=== PATIENT | female | born 2000 | race Caucasian/White ===

== ENCOUNTER 2023-08-13 16:40 | Inpatient (IN) | payer OTHER, SELFPAY ==
[2023-08-13] VITALS (22 sets, daily range): BP systolic 96–141; BP diastolic 46–81; PULSE 90–121; TEMP 36.3–37; BMI 43.4
--- NOTE | 2023-08-13 17:07 | LDADM ---
This patient, Keiko Smith, was admitted to Labor/Delivery/Recovery 107 on 08/13/23 at 16:40. Plans for labor, pain management and were discussed with patient. Patient/family oriented to hospital policies and general routines including ID bracelet, bed and alarms, visiting hours, pain management, procedures, bathroom and other care routines, personal items, smoking policy, room service/diet and guest tray routines, infant security routines, and visiting hours. Patient/Family are encouraged to report perceived risks to care and to ask questions if they do not understand what they are told or what they should do. See OBIX for further documentation.
[2023-08-13 17:26] LABS: Basophils Percent Auto 0.2 % (0.2-1.2); Eosinophils Percent Auto 0.3 % (0-4.4); Hematocrit 37.1 % (37.0-47.0); Hemoglobin 11.8 g/dL (12.0-15.0); Immature Granulocyte Absolute 0.06 K/mm3 (0.00-0.031); Immature Granulocyte Percent A 0.5 % (0-0.5); Lymphocytes Absolute Auto 1.64 K/mm3 (0.9-3.2); Lymphocytes Percent Auto 12.4 % (18.3-44.2); Mean Corpuscular HGB Conc 31.8 g/dl (32-36); Mean Corpuscular Hemoglobin 27.5 pg (26-34); Mean Corpuscular Volume 86.5 fl (80-100); Mean Platelet Volume 12.7 fl (7.4-10.4); Monocytes Percent Auto 7.3 % (2.6-8.5); Neutrophils Absolute Auto 10.5 K/mm3 (1.3-6.7); Neutrophils Percent Auto 79.3 % (45.5-73.1); Platelet Count Result 199 k/mm3 (150-375); Red Blood Count 4.29 M/mm3 (4.2-5.4); Red Cell Distribution Width 14.5 % (11.5-14.5); White Blood Count 13.2 K/mm3 (4.5-10.0)
[2023-08-13] MEDS: DINOPROSTONE 10 MG VAG INSERT VAGINAL (17:44)
--- NOTE | 2023-08-13 18:28 | WPDANESEPP ---
Anes - Eval Pre Procedure Procedure: labor epidural Date/Time: 08/13/23 18:28 Surgeon: aga Preop Diagnosis: pain during labor Pre Op Diagnosis: Induction Patient Data Age: 22 Gender: F Height: 1.7 m Weight: 126 kg Last Vital Signs Pulse 110 H 08/13/23 18:15 BP 127/75 08/13/23 18:15 O2 Del Method Room Air 08/13/23 17:05 Allergies Allergy/AdvReac Type Severity Reaction Status Date / Time No Known Allergies Allergy Verified 08/13/23 17:13 Home Medications Medication Instructions Recorded Confirmed Type prenat.vits,alirio,[id number] 1 tablet PO DAILY 07/13/23 08/13/23 History sertraline 50 mg tablet (Zoloft) 50 mg PO DAILY 07/13/23 08/13/23 History Laboratory Tests 08/13/23 17:15 WBC 13.2 H K/mm3 (4.5-10.0) RBC 4.29 M/mm3 (4.2-5.4) Hgb 11.8 L g/dL (12.0-15.0) Hct 37.1 % (37.0-47.0) MCV 86.5 fl (80-100) MCH 27.5 pg (26-34) MCHC 31.8 L g/dl (32-36) RDW 14.5 % (11.5-14.5) Plt Count 199 k/mm3 (150-375) MPV 12.7 H fl (7.4-10.4) Immature Gran % (Auto) 0.5 % (0-0.5) Neut % (Auto) 79.3 H % (45.5-73.1) Lymph % (Auto) 12.4 L % (18.3-44.2) [place] % (Auto) 7.3 % (2.6-8.5) Eos % (Auto) 0.3 % (0-4.4) Baso % (Auto) 0.2 % (0.2-1.2) Lymph # (Auto) 1.64 K/mm3 (0.9-3.2) [place] # (Auto) 1.0 H K/mm3 (0.1-0.6) Eos # (Auto) 0.0 K/mm3 (0-0.3) Baso # (Auto) 0.0 K/mm3 (0.0-0.1) Abs Immat Gran (auto) 0.06 H K/mm3 (0.00-0.031) Absolute Neuts (auto) 10.5 H K/mm3 (1.3-6.7) Absolute Nucleated RBC 0.000 K/mm3 (0.0-0.012) Nucleated RBC % 0.0 % (0.0-0.2) RPR Pending Blood Type O Positive Antibody Screen Pending Patient hx anesthesia problems: none Family hx anesthesia problems: none Results Review: All pre-operative results and documents have been reviewed as part of the pre-operative evaluation. [facility] Past Medical History Medical History (Updated 08/13/23 @ 18:28 by Roxanna Barrera CRNA) IUP (intrauterine ), incidental Morbid obesity Family History Family History (Updated 07/13/23 @ 12:31 by Kasey Zarate RN) Other Patient denies significant medical history Social History Social History Smoking status: Current every day smoker Tobacco type: e-cigarettes/vaping Second hand tobacco smoke exposure: No Substance use: never Do You Feel Safe in your Home?: Yes Lack of Transportation: No Lack of Food: Never True Current Housing: I Have Housing Concerned About Future Housing: No Difficulty Paying Gas/Electric Bills: No Difficulty Paying for Meds: No Currently Unemployed: No Education: Trade/Vocational Certificate Difficulty w/ Childcare or Family Care: No Spiritual care concerns: No Exam Day of Procedure 08/13/23 18:28
[2023-08-14] VITALS (179 sets, daily range): BP systolic 82–163; BP diastolic 38–128; PULSE 75–191; RESP 16–18; TEMP 36.4–37.2; O2SAT 83–100
[2023-08-14] MEDS: fentaNYL CITRATE INJ (*CRX) 100 MCG/2 ML VIAL 50 MCG IV PUSH ×2 (02:24→05:08)
[2023-08-14] MEDS: LACTATED RINGERS 1,000 ML 125 ML IV CONT ×3 (05:01→11:33)
[2023-08-14] MEDS: OXYTOCIN 30 UNITS/NS 500 ML 30 UNITS/500 ML BAG 6 UNITS IV CONT (05:02)
--- NOTE | 2023-08-14 07:15 | PM.IMHP ---
H&P: HPI History of Present Illness Date/Time: 08/14/23 07:15 Chief Complaint: for induction of Narrative: 22-year-old 1 para 0 whose last menstrual period was 11/02/2022, EDC is 08/09/2023, presents at 447 weeks gestation for induction of labor. She received Cervidil last night and is presently 2-3 cm 75% effaced and -2 station. AROM clear FHTs were reassuring. She is negative for group B strep PMFSH Past Medical History Medical History (Updated 08/14/23 @ 07:18 by Silviano Pham MD) IUP (intrauterine ), incidental Morbid obesity Family History Family History (Updated 07/13/23 @ 12:31 by Kasey Zarate RN) Other Patient denies significant medical history Social History Social History Smoking status: Current every day smoker Tobacco type: e-cigarettes/vaping Second hand tobacco smoke exposure: No Substance use: never Do You Feel Safe in your Home?: Yes Lack of Transportation: No Lack of Food: Never True Current Housing: I Have Housing Concerned About Future Housing: No Difficulty Paying Gas/Electric Bills: No Difficulty Paying for Meds: No Currently Unemployed: No Education: Trade/Vocational Certificate Difficulty w/ Childcare or Family Care: No Spiritual care concerns: No Meds Home Medications and Allergies Home Medications Medication Instructions Recorded Confirmed Type prenat.vits,alirio,lry-bcha-[id number] 1 tablet PO DAILY 07/13/23 08/13/23 History sertraline 50 mg tablet (Zoloft) 50 mg PO DAILY 07/13/23 08/13/23 History Allergies Allergy/AdvReac Type Severity Reaction Status Date / Time No Known Allergies Allergy Verified 08/13/23 17:13 Vital Signs Vital Signs - 24 hr 08/13/23 17:04 08/13/23 17:31 08/13/23 18:00 Temperature Pulse Rate 121 H 96 100 Blood Pressure 141/81 H 122/46 L 124/74 Oxygen Delivery 08/13/23 18:15 08/13/23 18:30 08/13/23 18:45 Temperature Pulse Rate 110 H 107 H 98 Blood Pressure 127/75 125/71 129/74 Oxygen Delivery 08/13/23 19:01 08/13/23 19:15 08/13/23 19:30 Temperature Pulse Rate 114 H 102 H 90 Blood Pressure 114/63 117/74 126/66 Oxygen Delivery 08/13/23 19:45 08/13/23 19:49 08/13/23 20:00 Temperature 97.3 F L Pulse Rate 101 H 91 Blood Pressure 111/66 121/68 Oxygen Delivery 08/13/23 20:16 08/13/23 20:31 08/13/23 20:46 Temperature Pulse Rate 90 95 105 H Blood Pressure 113/71 129/75 125/77 Oxygen Delivery 08/13/23 21:01 08/13/23 21:16 08/13/23 21:30 Temperature Pulse Rate 91 93 99 Blood Pressure 122/60 117/75 96/80 L Oxygen Delivery 08/13/23 21:45 08/13/23 22:00 08/13/23 23:01 Temperature Pulse Rate 107 H 92 91 Blood Pressure 117/80 121/74 124/66 Oxygen Delivery 08/13/23 23:42 08/14/23 00:01 08/14/23 01:00 Temperature 98.6 F Pulse Rate 91 91 Blood Pressure 135/70 117/75 Oxygen Delivery 08/14/23 02:00 08/14/23 03:00 08/14/23 04:00 Temperature Pulse Rate 88 85 86 Blood Pressure 120/71 123/72 133/69 Oxygen Delivery 08/14/23 04:34 08/14/23 06:46 08/14/23 07:00 Temperature 97.5 F L Pulse Rate 84 90 Blood Pressure 125/68 133/66 Oxygen Delivery 08/14/23 07:15 08/13/23 17:05 08/14/23 06:15 Temperature Pulse Rate 94 Blood Pressure 148/82 H Oxygen Delivery Room Air Room Air Exam Const: General: cooperative, healthy appearing and comfortable Nutritional Appearance: overweight Orientation/consciousness: oriented to person, oriented to place and oriented to time Resp: Effort & Inspection: normal respiratory effort Cardio: Rate: regular rate Rhythm: regular rhythm Heart sounds: S1 normal heart sound present and S2 normal heart sound present GI: Inspection: normal to inspection ( soft gravid uterus) and obesity H&P: Results Labs Labs: Short CBC 08/13/23 Range/Units 17:15 WBC 13.2 H (4.5-10.0) K/mm3 Hgb 11.8 L (12.0-15.0) g/dL
[2023-08-14] MEDS: SODIUM CHLORIDE 0.9% IV 300 ML 600 ML I-UTERINE (09:55)
--- NOTE | 2023-08-14 12:25 | PM.OBPNLAB ---
Pain Control Date/time seen: 08/14/23 12:25 Pain control: tolerating well and epidural Pelvic Exam Dilation (cm): 5 Effacement (%): 100 station: -1 Amniotic membrane status: Leaking Contractions Monitor mode: Internal
[2023-08-14 13:05] LABS: Rapid Plasma Reagin Non-Reactive (NonReactive)
--- NOTE | 2023-08-14 15:45 | P.PCNOB_ITS ---
OB - Vaginal Delivery Note Procedure Delivery date: 08/14/23 Events: Elective Induction of Labor Induction method: Per Cervidil Protocol Delivery augmentation: Rupture of Membranes and Pitocin Delivery monitor: External FHT and Internal Uterine Route of delivery: Episiotomy description: None Laceration Description: Perineal - 2nd Degree Delivery repair: vicryl Specimen: No Quantitative Blood Loss (ml): 61 Anesthesia type: Local Disposition: PACU Complications: No immediate complications [place] Baby Date of : 08/14/23 Time of : 15:31 Weeks of gestation at delivery: 40 Infant gender: Male presentation: vertex position: Right Occiput Anterior Placenta delivery description: Spontaneous Cord Vessel Description: 3 Vessels score one minute: 8 score five minutes: 9
--- NOTE | 2023-08-14 15:46 | P.DS_ITS ---
DS: Admitting Diagnosis Discharge Date 08/16/2023 Admitting Diagnosis Term pregnan DS: Discharge Diagnosis Discharge Diagnosis (1) Term : Code(s): Z34.90 - Encounter for supervision of normal , unspecified, unspecified trimester Status: Acute DS: Summary Hospital Course Reason for hospitalization: patient was admitted for a rupture membranes at term induction of labor. Hospital Course: The patient underwent spontaneous vaginal delivery on for the in the 08/24/2014 31hours. Her hospital course unremarkable. She remained at 7 whose up, voiding without difficulty, eating a diet, ambulating, generally without complaints. Time Spent with Patient Time attestation: Total time spent providing and/or coordinating discharge services: Exam Const: General: cooperative, healthy appearing and comfortable Nutritional Appearance: average body habitus Orientation/consciousness: oriented to person, oriented to place and oriented to time HENMT: Head: normal to inspection Resp: Effort & Inspection: normal respiratory effort Cardio: Rate: regular rate Rhythm: regular rhythm Heart sounds: S1 normal heart sound present and S2 normal heart sound present GI: Inspection: normal to inspection DS: Data Data Completed and Pending Labs on day of discharge: Labs from last 24 hours 08/13/23 17:15 WBC 13.2 H RBC 4.29 Hgb 11.8 L Hct 37.1 MCV 86.5 MCH 27.5 MCHC 31.8 L RDW 14.5 Plt Count 199 MPV 12.7 H Immature Gran % (Auto) 0.5 Neut % (Auto) 79.3 H Lymph % (Auto) 12.4 L [place] % (Auto) 7.3 Eos % (Auto) 0.3 Baso % (Auto) 0.2 Lymph # (Auto) 1.64 [place] # (Auto) 1.0 H Eos # (Auto) 0.0 Baso # (Auto) 0.0 Abs Immat Gran (auto) 0.06 H Absolute Neuts (auto) 10.5 H Absolute Nucleated RBC 0.000 Nucleated RBC % 0.0 RPR Non-reactive Blood Type O Positive Antibody Screen Negative Discharge Plan Discharge Attending physician on discharge: Silviano Medina Discharging Clinician: Silviano Medina Patient Disposition: Home, Self-Care Activity: may shower and no straining Diet: heart healthy Wound Care Instructions: follow printed instructions Patient Instructions: Antibiotic Form Stand Alone Forms: General Discharge Information Follow-up/Referrals: Silviano Medina MD [Physician] - Discharge Medications: Continued sertraline [Zoloft] 50 mg Tablet 50 mg PO DAILY #2 Tablet 1 tablet PO DAILY Date of admission: 08/13/23 16:40 Primary Care Provider: UNKNOWN,DOCTOR Admitting Provider: Silviano Medina Attending physician on admission: Silviano Medina Condition: Stable
[2023-08-14] MEDS: OXYTOCIN 30 UNITS/NS 500 ML 30 UNITS/500 ML BAG 125 UNITS IV CONT (16:06)
[2023-08-14] MEDS: BENZOCAINE 20% AER SPR (*SP) 56 GM CAN 1 SPRAY TOPICAL (17:35)
[2023-08-14] MEDS: WITCH HAZEL 40 PADS 1 PAD TOPICAL (17:35)
--- NOTE | 2023-08-14 18:00 | OBPPTRN ---
Patient transferred to post room #285 via wheelchair. Support person present. Oriented to unit, room, information board, rooming in, admission packet and security measures. Patient verbalizes understanding.
[2023-08-15 05:00] VITALS: BP 115/60; PULSE 84; RESP 18; TEMP 36.9; O2SAT 100
[2023-08-15 05:18] LABS: Hematocrit 30.9 % (37.0-47.0); Hemoglobin 9.9 g/dL (12.0-15.0)
--- NOTE | 2023-08-15 05:49 | PM.OBPNVD ---
OB - PN: Subj Subjective Date/time seen: 08/15/23 05:49 Patient comments: no complaints and pain well controlled baby status: doing well OB - PN: Obj Data Labs 08/15/23 05:12 Labs: Laboratory Results - last 24 hr 08/13/23 08/15/23 17:15 05:12 Hgb 9.9 L Hct 30.9 L RPR Non-reactive OB - PN A/P Plan day: 1 Plan: routine care Time Spent With Patient Time: Total time spent is greater than 50% in coordination of care (as documented) at patient's floor/unit and/or counseling patient: Time with patient: less than 15 minutes Exam Const: General: cooperative, healthy appearing and comfortable Orientation/consciousness: oriented to person, oriented to place and oriented to time HENMT: Head: normal to inspection Resp: Effort & Inspection: normal respiratory effort Cardio: Rate: regular rate Rhythm: regular rhythm Heart sounds: S1 normal heart sound present and S2 normal heart sound present GI: Inspection: normal to inspection
[2023-08-15] MEDS: ACETAMINOPHEN 325 MG TABLET 650 MG PO (06:54)
--- NOTE | 2023-08-15 07:29 | WPDANLDPN2 ---
Anes-Prog Note L&D Date/Time: 08/15/23 07:29 Comfortable throughout: labor and delivery Neuraxial method: epidural Epidural/Spinal procedure site: clean & non-tender Neuro status: Neuro function grossly intact. Cardiovascular status: normal Respiratory status: normal Airway patency: baseline Mental status: baseline Post-Op hydration status: normal Vital Signs: Last Vital Signs Temp 36.9 C 08/15/23 05:00 Pulse 84 08/15/23 05:00 Resp 18 08/15/23 05:00 BP 115/60 08/15/23 05:00 Pulse Ox 100 08/15/23 05:00 O2 Del Method Room Air 08/14/23 18:10 Pain score (VAS): 05/16 I/O: Intake & Output 08/14/23 08/14/23 08/15/23 15:59 23:59 07:59 Intake Total 1999 Output Total 65 60 Balance 1935 -60 Post-procedural complaints: none Patient feedback: Patient satisfied with anesthetic care.
[2023-08-15 07:30] VITALS: BP 132/71; PULSE 92; RESP 16; TEMP 36.6; O2SAT 100
[2023-08-15 08:00] VITALS: PULSE 84; RESP 18; O2SAT 100
[2023-08-15] MEDS: DOCUSATE SODIUM 100 MG CAPSULE PO ×2 (09:24→16:54)
[2023-08-15] MEDS: POLYSACCHARIDE IRON COMPLEX 150 MG CAPSULE PO ×2 (09:24→16:54)
[2023-08-15] MEDS: MULTIVIT/MIN/PREN/FOL AC/IRON TABLET 1 TAB PO (09:24)
[2023-08-15] MEDS: IBUPROFEN 600 MG TABLET PO (11:20)
[2023-08-15 11:22] VITALS: BP 121/60; PULSE 90; RESP 16; TEMP 36.5; O2SAT 100
[2023-08-15 20:00] VITALS: BP 109/66; PULSE 107; RESP 20; TEMP 37.1
--- NOTE | 2023-08-16 06:43 | PM.OBPNVD ---
OB - PN: Subj Subjective Date/time seen: 08/16/23 06:43 Patient comments: no complaints and pain well controlled baby status: doing well OB - PN: Obj Data Labs 08/15/23 05:12 OB - PN A/P Plan day: 2 Plan: routine care, discharge home and follow up 6 weeks Time Spent With Patient Time: Total time spent is greater than 50% in coordination of care (as documented) at patient's floor/unit and/or counseling patient: Time with patient: less than 15 minutes Exam Const: General: cooperative, healthy appearing and comfortable Nutritional Appearance: average body habitus Orientation/consciousness: oriented to person, oriented to place and oriented to time Resp: Effort & Inspection: normal respiratory effort Cardio: Rate: regular rate Rhythm: regular rhythm Heart sounds: S1 normal heart sound present and S2 normal heart sound present GI: Inspection: normal to inspection
[2023-08-16] MEDS: SIMETHICONE 80 MG TAB.CHEW PO (08:19)
[2023-08-16] MEDS: DOCUSATE SODIUM 100 MG CAPSULE PO (08:19)
[2023-08-16 08:28] VITALS: BP 125/69; PULSE 91; RESP 16; TEMP 35.8; O2SAT 100
[2023-08-16] MEDS: POLYSACCHARIDE IRON COMPLEX 150 MG CAPSULE PO (08:44)
--- NOTE | 2023-08-16 15:14 | PC.NURSE ---
[id number] Consulted with mother concerning /making a milk supply as this is something she has previously considered. Mother has been practicing bottle feeding after one 5 min breastfeed after delivery and asked for a bottle. Mother shared that she will begin pumping at home and declines initiating pumping at the hospital because her milk is not in . Reviewed milk production, initiating and consistently pumping 8 times in a 24 hour period with 1-2 times at night to encourage a robust milk supply. has had appropriate feedings in the last 24 hours meets the outcomes for weight, output, blood sugar and jaundice at this time after being bottle fed formula. Reinforced understanding of milk production, transition of milk, signs of adequate intake, transition of stool, prevention/relief of engorgement, plugged ducts, mastitis, responsive watching for feeding cues, feeding on demand, community resources, and when to call a provider using the resource of the feeding sheet along with the mom and baby guide. Mother voiced understanding of the information shared, is confident to continue effectively her at home, when to call for assistance, denies any additional assistance or education at this time.
[2023-08-17 09:40] VITALS: BP 129/86; PULSE 86; RESP 18; TEMP 36.9; O2SAT 100
== END 2023-08-16 10:03 | disposition home or self-care (01) | DRG 807 ==
LOC: ANHLDR 08-14 15:48 → ANHOB2 08-14 18:37
PROVIDERS: Admitting Provider Obstetrics & Gynecology; Visit Provider Obstetrics & Gynecology
DX: O99.214 Obesity complicating childbirth (principal); Z37.0 Single live birth; Z3A.40 40 weeks gestation of pregnancy; O70.1 Second degree perineal laceration during delivery; E66.01 Morbid (severe) obesity due to excess calories
CPT/HCPCS: 36415; 85014; 85018; 85025; 86592; 86850; 86900; 86901; A9270; J2590; J2795; J3010; J7030; J7120